=== PATIENT | male | born 1970 | race Caucasian/White ===

== ENCOUNTER → 2019-12-10 | Outpatient (CLI) | payer BC ==
[2013-04-22 20:15] VITALS: BP 114/71
[~2019-12-10] MED LIST: PRILOSEC 20MG20 MG PO; SULFAMETH/TRIME1 TA2 PO
[2019-12-10 17:31] LABS: EOS # 0.2 (0.04-0.40); EOS % 2.6 % (0.0-4.0); HEMOGLOBIN 13.3 g/dL (13.5-18.0); LYMPH# 2.1 (1.50-4.00); MEAN CELL VOLUME 90 fl (78-100); MEAN CORPUSCULAR HEMOGLOBIN 30 pg (27-31); MEAN CORPUSCULAR HGB CONC 33 g/dL (33-37); MEAN PLATELET VOLUME 9.3 fl (7.4-10.4); MONO # 0.7 (0.20-0.80); NEU # 3.4 (1.40-6.50); PLATELET COUNT 288 K/mm3 (130-400); RED BLOOD COUNT 4.45 M/mm3 (4.20-5.60); RED CELL DISTRIBUTION WIDTH 12.1 % (11.5-14.5); WHITE BLOOD COUNT 6.4 K/mm3 (4.8-10.8)
[2019-12-10 17:45] LABS: ALBUMIN 4.2 g/dL (3.5-5.0); POTASSIUM 4.1 mmol/L (3.5-5.1)
[2019-12-10 17:46] LABS: CALCIUM 9.4 mg/dL (8.3-10.5)
[2019-12-10 17:48] LABS: TOTAL PROTEIN 8.2 g/dL (6.4-8.3)
[2019-12-10 17:50] LABS: TOTAL BILIRUBIN 0.2 mg/dL (0.2-1.2)
[2019-12-12 13:01] LABS: ANA SCREEN with REFLEX Positive (Negative)
== END ==
LOC: LAB 17:18
PROVIDERS: Physician Assistant
DX: Z00.00 Encounter for general adult medical examination without abnormal findings (principal); Z13.29 Encounter for screening for other suspected endocrine disorder; Z13.220 Encounter for screening for lipoid disorders; I10 Essential (primary) hypertension; K21.9 Gastro-esophageal reflux disease without esophagitis; M25.50 Pain in unspecified joint; M19.90 Unspecified osteoarthritis, unspecified site

== ENCOUNTER → 2021-12-16 | Outpatient (CLI) | payer BC ==
[2021-12-16 09:57] LABS: BASO # 0.01 K/mm3 (0.02-0.10); EOS # 0.19 K/mm3 (0.04-0.40); EOS % 3.7 % (0.0-4.0); HEMATOCRIT 45.7 % (42.0-52.0); LYMPH# 1.89 K/mm3 (1.50-4.00); MEAN CELL VOLUME 91 fl (78-100); MEAN CORPUSCULAR HEMOGLOBIN 30 pg (27-31); MEAN CORPUSCULAR HGB CONC 33 g/dL (33-37); MEAN PLATELET VOLUME 9.7 fl (7.4-10.4); MONO # 0.57 K/mm3 (0.20-0.80); NEU # 2.52 K/mm3 (1.40-6.50); PLATELET COUNT 203 K/mm3 (130-400); RED BLOOD COUNT 5.02 M/mm3 (4.20-5.60); RED CELL DISTRIBUTION WIDTH 12.3 % (11.5-14.5); WHITE BLOOD COUNT 5.2 K/mm3 (4.8-10.8)
[2021-12-16 10:09] LABS: ALBUMIN 4.3 g/dL (3.5-5.0); POTASSIUM 4.4 mmol/L (3.5-5.1)
[2021-12-16 10:11] LABS: CALCIUM 9.5 mg/dL (8.3-10.5)
[2021-12-16 10:12] LABS: TOTAL PROTEIN 7.8 g/dL (6.4-8.3)
[2021-12-16 10:14] LABS: TOTAL BILIRUBIN 0.4 mg/dL (0.2-1.2)
== END ==
LOC: LAB 09:41
PROVIDERS: Physician Assistant
DX: Z00.00 Encounter for general adult medical examination without abnormal findings (principal); Z13.29 Encounter for screening for other suspected endocrine disorder; Z13.1 Encounter for screening for diabetes mellitus; K21.9 Gastro-esophageal reflux disease without esophagitis; R76.8 Other specified abnormal immunological findings in serum; M19.90 Unspecified osteoarthritis, unspecified site; I10 Essential (primary) hypertension; E78.5 Hyperlipidemia, unspecified; E66.01 Morbid (severe) obesity due to excess calories; M25.50 Pain in unspecified joint; R60.0 Localized edema

== ENCOUNTER → 2023-12-26 | Outpatient (CLI) | payer OTHER ==
[2023-12-26 13:08] LABS: BASO # 0.03 K/mm3 (0.02-0.10); EOS # 0.26 K/mm3 (0.04-0.40); HEMATOCRIT 44.6 % (42.0-52.0); HEMOGLOBIN 14.8 g/dL (13.5-18.0); LYMPH# 1.79 K/mm3 (1.50-4.00); MEAN CELL VOLUME 95 fl (78-100); MEAN CORPUSCULAR HEMOGLOBIN 31 pg (27-31); MEAN CORPUSCULAR HGB CONC 33 g/dL (33-37); MEAN PLATELET VOLUME 9.4 fl (7.4-10.4); MONO # 0.51 K/mm3 (0.20-0.80); NEU # 2.59 K/mm3 (1.40-6.50); PLATELET COUNT 199 K/mm3 (130-400); RED BLOOD COUNT 4.71 M/mm3 (4.20-5.60); RED CELL DISTRIBUTION WIDTH 12.2 % (11.5-14.5); WHITE BLOOD COUNT 5.2 K/mm3 (4.8-10.8)
[2023-12-26 13:32] LABS: ALBUMIN 4.4 g/dL (3.5-5.0)
[2023-12-26 13:33] LABS: CALCIUM 9.4 mg/dL (8.3-10.5)
[2023-12-26 13:34] LABS: TOTAL PROTEIN 7.7 g/dL (6.4-8.3)
[2023-12-26 13:36] LABS: TOTAL BILIRUBIN 0.4 mg/dL (0.2-1.2)
== END ==
LOC: LAB 12:52
PROVIDERS: Physician Assistant
DX: Z13.29 Encounter for screening for other suspected endocrine disorder (principal); I10 Essential (primary) hypertension; E11.9 Type 2 diabetes mellitus without complications; E78.5 Hyperlipidemia, unspecified; K90.9 Intestinal malabsorption, unspecified